=== PATIENT | female | born 1970 | race Caucasian/White ===

== ENCOUNTER 2016-07-26 20:35 | Emergency (ER) | payer OTHER ==
[~2016-07-26] VITALS: Ht 154.9 cm; Wt 46.3 kg
[2016-07-26 20:44] VITALS: BP 105/74
--- NOTE | 2016-07-26 20:59 | ED ANIMAL BITE/WOUND CHECK ---
History of Present Illness General Chief Complaint: Animal/Insect Bite Stated Complaint: HORSE BITE TO R FOREARM Source: patient Exam Limitations: no limitations Vital Signs & Intake/Output Vital Signs & Intake/Output Vital Signs Date Time Temp Pulse Resp B/P B/P Pulse O2 O2 Flow FiO2 Mean Ox Delivery Rate 07/27 2043 98.3 78 15 105/74 100 Room Air ED Intake and Output 07/27 0000 07/26 1200 Intake Total Output Total Balance Patient 102 lb Weight Weight Reported by Patient Measurement Method Allergies Coded Allergies: NO KNOWN ALLERGIES (01/29/11) Triage Note: PT TO ED FOR A HORSE BITE TO R FOREARM. NO BROKEN SKIN, SMALL AREA OF BRUISING. PT REQUESTING TETANUS SHOT. Triage Nurses Notes Reviewed? yes HPI: Patient is a 46-year-old female presents complaining of horse bite to her right forearm. Injury occurred approximately 2 hours ago. Patient reports pain is a burning sensation currently mild, worsens with palpation. There was no bleeding , no apparent breaking of skin. Patient requesting a tetanus immunization, she is unsure of the last time she had a tetanus immunization. Patient is right- handed dominant. Patient denies numbness or decreased range of motion (KETTY AGUILAR) Past History Travel History Traveled to [place] past 21 day No Medical History Any Pertinent Medical History? none Neurological: NONE EENT: NONE Cardiovascular: NONE Respiratory: NONE Gastrointestinal: NONE Hepatic: NONE Renal: NONE Musculoskeletal: NONE Psychiatric: NONE Endocrine: NONE Blood Disorders: NONE Cancer(s): NONE RN COMMUNITY/Reproductive: NONE Surgical History Surgical History: non-contributory Psychosocial History What is your primary language Italian Tobacco Use: Never used ETOH Use: occasional use Illicit Drug Use: denies illicit drug use Family History Hx Contributory? No (KETTY AGUILAR) Review of Systems Review of Systems Constitutional: Reports: no symptoms. Cardiovascular: Denies: chest pain. GI: Denies: abdominal pain. Musculoskeletal: Reports: see HPI. Denies: back pain, neck pain. Skin: Reports: see HPI. Neurological/Psychological: Denies: numbness, paresthesia. Hematologic/Endocrine: Reports: bruising (at area of bite). Denies: bleeding. Immunologic/Allergic: Denies: splenectomy. (KETTY AGUILAR) Physical Exam Physical Exam General Appearance: well developed/nourished, alert, awake Head: atraumatic, normal appearance Eyes: Bilateral: normal appearance. Ears, Nose, Throat: hearing grossly normal Neck: normal inspection, full range of motion Respiratory: no respiratory distress Peripheral Pulses: 2+ radial (R) Back: normal inspection, normal range of motion Extremities: 2.5 cm area of ecchymosis right mid medial forearm. Full range of motion. No bony tenderness. Skin intact. Neurologic/Psych: no motor/sensory deficits, awake, alert, oriented x 3, normal gait Skin: see extremities exam. No break in skin visible in the area of the injury. (KETTY AGUILAR) Progress Differential Diagnosis: contusion, fracture, foreign body, compartment syndrome Plan of Care: Current Medications Sig/Cipriano Start time Last Medication Dose Stop Time Status Admin Tetanus/Diphtheria 0.5 ML ONCE ONE 07/26 2114 AC 07/26 Toxoids [facility] 07/[facility] ([facility] No apparent break in skin. No bony tenderness. No significant pain with passive movements of right hand. Imaging deferred secondary to exam. (KETTY AGUILAR) Departure Departure Time of Disposition: 2104 Disposition: HOME OR SELF CARE Condition: Stable Clinical Impression Primary Impression: Contusion of forearm, right Qualifiers: Encounter type: initial encounter Qualified Code: S50.11XA - Contusion of right forearm, initial encounter Secondary Impressions: Horse bite Qualifiers: Encounter type: initial encounter Qualified Code: W55.11XA - Bitten by horse, initial encounter Referrals: PATIENT HAS NO PRIMARY CARE DR (PCP/Family) Additional Instructions: Ice the affected area for 20 minutes 4-5 times a day. Ibuprofen (Advil/Motrin) as directed for pain control. Return to the emergency department if redness spreading, fevers, increasing pain, numbness, weakness, or worsening symptoms. Departure Forms: Customer Survey General Discharge Information (KETTY AGUILAR) PA/AUTOMOTIVE SERVICE MANAGEMENT TEACHER Co-Sign Statement Statement: ED Attending supervision documentation- [] I saw and evaluated the patient. I have also reviewed all the pertinent lab results and diagnostic results. I agree with the findings and the plan of care as documented in the PA's/AUTOMOTIVE SERVICE MANAGEMENT TEACHER's documentation. [x] I have reviewed the ED Record and agree with the PA's/AUTOMOTIVE SERVICE MANAGEMENT TEACHER's documentation. [] Additions or exceptions (if any) to the PAs/AUTOMOTIVE SERVICE MANAGEMENT TEACHER's note and plan are summarized below: [] (JEFF CHAVEZ,CHINA Duarte)
== END 2016-07-26 21:22 ==
LOC: ERH 20:35
DX: S50.11XA Contusion of right forearm, initial encounter (principal); W55.11XA Bitten by horse, initial encounter; Y93.9 Activity, unspecified; Y92.9 Unspecified place or not applicable
CPT/HCPCS: 90471